=== PATIENT | male | born 1955 | race Caucasian/White ===

== ENCOUNTER 2018-06-11 14:20 | Day surgery (SDC) | payer OTHER ==
[~2018-06-11] VITALS: Ht 172.7 cm; Wt 86.8 kg
[2018-06-11 14:49] VITALS: BP 150/97
[2018-06-11] MEDS ORDERED: HYDR-3653 PO (15:33)
[2018-06-11] MEDS ORDERED: AMLO10TA6 PO (15:33)
[2018-06-11] MEDS ORDERED: MELA10TA PO (15:33)
[2018-06-11] MEDS ORDERED: TIZA4CAP PO (15:33)
[2018-06-11] MEDS ORDERED: LISI-170 PO (15:33)
[2018-06-11] MEDS ORDERED: LACTATED RINGERS 1,000 ML IV SCH (15:55)
[2018-06-11] MEDS ORDERED: PLEASE ENTER ALLERGIES MC SCH (16:00)
[2018-06-11] MEDS ORDERED: EPINEPHRINE 1 MG/ML, 1ML ONE (16:33)
[2018-06-11] MEDS ORDERED: BUPIVACAINE 0.25% ONE (16:33)
[2018-06-11] MEDS ORDERED: SCOPOLAMINE PATCH, 1.5MG PATCH.TD72 TD ONE (16:38)
[2018-06-11] MEDS ORDERED: FENTANYL PF 100 MCG/2ML ONE ×5 (16:58→18:13)
[2018-06-11] MEDS ORDERED: MIDAZOLAM 1 MG/ML, 2ML ONE (17:00)
[2018-06-11] MEDS ORDERED: MEPERIDINE/PF 25MG/0.5ML IVPush PRN (17:30)
[2018-06-11] MEDS ORDERED: PROMETHAZINE 25 MG/ML, 1ML IV PRN (17:30)
[2018-06-11] MEDS ORDERED: ACETAMINOPHEN 325 MG TABLET PO PRN (17:30)
[2018-06-11] MEDS ORDERED: OXYcodone 5 MG/5 ML ORAL.SOL UDC PO PRN (17:30)
[2018-06-11] MEDS ORDERED: CEFAZOLIN 1,000 MG ONE (17:53)
[2018-06-11] MEDS ORDERED: NEOSTIGMINE 1 MG/ML, 10ML ONE (17:53)
[2018-06-11] MEDS ORDERED: DEXAMETHASONE 4 MG/ML, 1ML ONE (17:53)
[2018-06-11] MEDS ORDERED: SUCCINYLCHOLINE 20 MG/ML, 10ML ONE (17:53)
[2018-06-11] MEDS ORDERED: ROCURONIUM 10MG/ML,5ML ONE (17:53)
[2018-06-11] MEDS ORDERED: LABETALOL 20 MG/4 ML ONE ×2 (17:53→18:33)
[2018-06-11] MEDS ORDERED: GLYCOPYRROLATE 0.2MG/1ML, 5ML ONE (17:53)
[2018-06-11] MEDS ORDERED: PROPOFOL 10 MG/ML, 20ML ONE (17:53)
[2018-06-11] MEDS ORDERED: ONDANSETRON 2MG/ML, 2ML ONE (17:53)
[2018-06-11] MEDS ORDERED: MEPERIDINE/PF 50 MG/ML ONE (18:14)
[2018-06-11] MEDS ORDERED: LORazepam 2 MG/ML, 1ML ONE (18:16)
[2018-06-11] MEDS: FENTANYL PF 100 MCG/2ML IV PRN ×3 (18:25→18:45)
[2018-06-11] MEDS ORDERED: DIAZEPAM 5 MG/ML, 2ML IVPush PRN (18:30)
[2018-06-11] MEDS ORDERED: LORazepam 2 MG/ML, 1ML IVPush PRN (18:30)
[2018-06-11] MEDS ORDERED: OXYcodone 5 MG/5 ML ORAL.SOL UDC ONE (18:33)
[2018-06-11] MEDS ORDERED: ACETAMINOPHEN 650 MG/20.3 ML UDC ONE (18:33)
[2018-06-11] MEDS ORDERED: HYDROmorphone 2 MG/ML, 1ML ONE (18:46)
[2018-06-11] MEDS ORDERED: hydrALAzine 20 MG/ML, 1ML ONE (18:52)
[2018-06-11] MEDS: HYDROmorphone 2 MG/ML, 1ML IVPush PRN ×2 (19:00→19:10)
[2018-06-11] MEDS ORDERED: hydrALAzine 20 MG/ML, 1ML IV PRN (19:00)
[2018-06-11] MEDS ORDERED: LABETALOL 5MG/ML, 20ML IV PRN (19:00)
[2018-06-11 21:04] VITALS: BP 140/75
== END 2018-06-11 22:21 | disposition home or self-care (01) ==
LOC: OR 14:20 → 4NOR 19:54 → OR 22:21
PROVIDERS: ATTEND Plastic Surgery
DX: Z48.1 Encounter for planned postprocedural wound closure (principal); I10 Essential (primary) hypertension
CPT/HCPCS: 14021; J0171; J0330; J0360; J0690; J1100; J1170; J2060; J2175; J2250; J2405; J2704; J2710; J3010; J3360; J3490; J7120; G0378